=== PATIENT | female | born 1940 | race Caucasian/White ===

== ENCOUNTER 2023-05-26 12:52 | Emergency (ER) | payer OTHER ==
[~2023-05-26] VITALS: Ht 144.8 cm; Wt 67.6 kg
[~2023-05-26 12:52] MED LIST: ALPR0.5T7 PO; IBUP-1456 PO; IPRASOL41 NEB; OMEP20TA44 PO; RANI150C11 PO
[2023-05-26 13:39] LABS: Basophils # (auto) 0 10 ^3/uL (0-0.2); Basophils % (auto) 0.5 % (0.0-2.0); Eosinophils # (auto) 0.1 10 ^3/uL (0-0.8); Eosinophils % (auto) 1.4 % (0.0-7.0); Hematocrit 37.6 % (36.0-46.0); Hemoglobin 12.1 g/dL (12.2-16.2); Lymphocytes # (auto) 1.7 10 ^3/uL (0.4-5.4); Lymphocytes % (auto) 17.9 % (10.0-50.0); Mean Corpuscular Hemoglobin 30.2 pg (28.0-32.0); Mean Corpuscular Hgb Conc. 32.2 g/dL (32.0-36.0); Mean Corpuscular Volume 93.8 fL (80.0-100.0); Monocytes # (auto) 1.2 10 ^3/uL (0-1.3); Monocytes % (auto) 13.2 % (0.0-12.0); Neutrophils # (auto) 6.3 10 ^3/uL (1.6-8.6); Nucleated Red Blood Cells % 0.1 %; Red Blood Cells 4.01 10^6/uL (4.0-5.20); Red Cell Distribution Width 15.4 % (11.8-14.3); White Blood Cell 9.4 10^3/uL (4.4-10.8)
[2023-05-26 14:10] LABS: Potassium 4.4 mmol/L (3.5-5.1)
[2023-05-26 14:20] LABS: Albumin 3.6 g/dL (3.4-5.0); Bilirubin, Total 0.4 mg/dL (0.2-1.0); Calcium 9.1 mg/dL (8.5-10.1); Total Protein 7.1 g/dL (6.4-8.2)
[2023-05-26 15:55] VITALS: BP 176/73
[2023-05-26] MEDS ORDERED: cloNIDine HCL 0.1 MG TAB PO ONE (16:00)
== END 2023-05-26 15:59 | disposition home or self-care (01) ==
LOC: ER 12:52
DX: I10 Essential (primary) hypertension (principal); J45.909 Unspecified asthma, uncomplicated; Z79.82 Long term (current) use of aspirin; Z79.899 Other long term (current) drug therapy; Z88.8 Allergy status to other drugs, medicaments and biological substances
CPT/HCPCS: 36415; 80053; 82962; 83880; 84484; 85025; 93005

== ENCOUNTER 2024-03-30 11:42 | Inpatient (IN) | payer OTHER, MEDICAID ==
[2024-03-30] VITALS (7 sets, daily range): BP systolic 188; BP diastolic 82; PULSE 73–93; RESP 18; TEMP 98.1; O2SAT 92–100
[~2024-03-30] VITALS: Ht 157.5 cm; Wt 68.4 kg
[2024-03-30] MEDS: methylPREDNISolone SOD SUCC 125 MG/2 ML VL IV ONE (13:39)
[2024-03-30] MEDS: cloNIDine HCL 0.1 MG TAB PO ONE (14:09)
[2024-03-30 14:13] LABS: Basophils # (auto) 0 10 ^3/uL (0-0.2); Basophils % (auto) 0.3 % (0.0-2.0); Eosinophils # (auto) 0.1 10 ^3/uL (0-0.8); Eosinophils % (auto) 1.4 % (0.0-7.0); Hematocrit 37.3 % (36.0-46.0); Hemoglobin 12.3 g/dL (12.2-16.2); Lymphocytes # (auto) 1.2 10 ^3/uL (0.4-5.4); Lymphocytes % (auto) 14.4 % (10.0-50.0); Mean Corpuscular Hemoglobin 31.4 pg (28.0-32.0); Mean Corpuscular Volume 95.1 fL (80.0-100.0); Monocytes # (auto) 0.9 10 ^3/uL (0-1.3); Monocytes % (auto) 11.3 % (0.0-12.0); Neutrophils # (auto) 5.9 10 ^3/uL (1.6-8.6); Neutrophils % (auto) 72.6 % (37.0-80.0); Red Blood Cells 3.92 10^6/uL (4.0-5.20); Red Cell Distribution Width 14.4 % (11.8-14.3); White Blood Cell 8.1 10^3/uL (4.4-10.8)
[2024-03-30 14:47] LABS: Chloride 96 mmol/L (98-107); Potassium 2.8 mmol/L (3.5-5.1); Sodium 136 mmol/L (136-145)
[2024-03-30 14:48] LABS: Anion Gap 7 (5-15); Calcium 9.3 mg/dL (8.5-10.1); Carbon Dioxide 33 mmol/L (20-30)
[2024-03-30 14:53] LABS: BUN/Creatinine Ratio 9.3 (10.0-20.0); Blood Urea Nitrogen 5 mg/dL (9-23); Glucose 110 mg/dL (74-106)
[2024-03-30] MEDS ORDERED: NITROGLYCERIN 0.4 MG SL TAB SL PRN (16:00)
[2024-03-30] MEDS ORDERED: MORPHINE SULFATE INJ 2 MG/ml SYRG IV PRN (16:00)
[2024-03-30] MEDS ORDERED: cloNIDine HCL 0.1 MG TAB PO PRN (16:15)
[2024-03-30 17:06] LABS: Urine Bacteria None Seen /hpf (None Seen)
[2024-03-30] MEDS: MAGNESIUM SULFATE 1GM/100ML 100 ML IV SCH (17:58)
[2024-03-30] MEDS: POTASSIUM CHL 20 Meq TABLET PO ONE (17:58)
[2024-03-30] MEDS: POTASSIUM EFFERVESENT TAB 25 MEQ PO ONE (18:00)
[2024-03-30] MEDS ORDERED: PIPERACILLIN-TAZOB 3.375GM 100 ML IV SCH (18:00)
[2024-03-30 18:14] LABS: Urine Blood Negative /uL (Negative); Urine Clarity Clear (Clear); Urine Color Light-Yellow (Yellow); Urine Protein, UAD Negative (Negative); Urine Urobilinogen Normal (Negative); Urine WBC 1 /hpf (0 - 5)
[2024-03-30] MEDS: IPRATROPIUM BROM 0.5 MG/2.5ML INH SOL NEB SCH (18:47)
[2024-03-30] MEDS: BUDESONIDE (INHALATION) 0.5 MG/2 ML NEB NEB SCH (18:47)
[2024-03-30] MEDS: ALBUTEROL SULF 2.5 MG/0.5ML(0.5%) NEB SOLN NEB SCH (18:47)
[2024-03-30] MEDS: LISINOPRIL 20 MG TAB PO SCH (21:44)
[2024-03-30] MEDS: POTASSIUM CHL 20 Meq TABLET PO SCH (21:44)
[2024-03-30] MEDS: PIPERACILLIN-TAZOB 3.375GM 100 ML IV SCH (21:45)
[2024-03-30] MEDS: methylPREDNISolone SOD SUCC 40 MG/ML VL IV SCH (21:45)
[2024-03-30] MEDS: ALPRAZolam 0.5 MG TAB PO SCH (21:45)
[2024-03-31 06:44] LABS: Anion Gap 6 (5-15); Calcium 9.5 mg/dL (8.5-10.1); Carbon Dioxide 31 mmol/L (20-30); Chloride 96 mmol/L (98-107); Sodium 133 mmol/L (136-145)
[2024-03-31 06:50] LABS: BUN/Creatinine Ratio 15.3 (10.0-20.0); Blood Urea Nitrogen 11 mg/dL (9-23); Glucose 143 mg/dL (74-106)
[2024-03-31 06:51] LABS: Magnesium 2.3 mg/dL (1.6-2.6)
[2024-03-31 07:11] VITALS: PULSE 76; RESP 16; O2SAT 96
[2024-03-31 07:19] VITALS: PULSE 74; RESP 18; O2SAT 98
[2024-03-31] MEDS: ACETAMINOPHEN 500 MG TAB PO PRN (07:58)
[2024-03-31] MEDS: FAMOTIDINE 20 MG TAB PO SCH (11:22)
[2024-03-31] MEDS: amLODIPine BESYLATE 5 MG TAB PO SCH (11:23)
[2024-03-31] MEDS: ENOXAPARIN SOD 40 MG/0.4 ML SYRINGE SC SCH (11:23)
[2024-03-31] MEDS ORDERED: IPRA0.00 IN (15:02)
[2024-03-31] MEDS ORDERED: LISI10TA34 PO (15:02)
[2024-03-31] MEDS ORDERED: PRED20TA2 PO (15:02)
[2024-03-31] MEDS ORDERED: AMOX500T86 PO (15:02)
[2024-03-31 19:30] VITALS: PULSE 101; PULSE 104; RESP 20; RESP 22; O2SAT 95; O2SAT 96
[2024-03-31 19:40] VITALS: PULSE 102; RESP 22; O2SAT 99
[2024-03-31 22:59] VITALS: PULSE 88; RESP 24; O2SAT 97
[2024-04-01] VITALS (16 sets, daily range): BP systolic 130–143; BP diastolic 56–72; PULSE 71–108; RESP 16–22; TEMP 97.7–99.1; O2SAT 92–99
[2024-04-01] MEDS: AMOXICILLIN/CLAVULAN 500 MG TAB PO SCH (22:00)
[2024-04-01] MEDS: MUPIROCIN 2% OINT 15gm or 22gm FOR MRSA NARES EACHNOSTRI SCH (22:34)
[2024-04-01] MEDS: ONDANSETRON HCL 4 MG/2 ML VIAL IV PRN (22:43)
[2024-04-02] VITALS (17 sets, daily range): BP systolic 126–148; BP diastolic 64–79; PULSE 71–113; RESP 16–22; TEMP 97.7–98.2; O2SAT 93–99
[2024-04-02 06:03] LABS: Basophils # (auto) 0 10 ^3/uL (0-0.2); Basophils % (auto) 0.1 % (0.0-2.0); Eosinophils # (auto) 0 10 ^3/uL (0-0.8); Eosinophils % (auto) 0.1 % (0.0-7.0); Hematocrit 35.1 % (36.0-46.0); Hemoglobin 11.5 g/dL (12.2-16.2); Lymphocytes # (auto) 0.7 10 ^3/uL (0.4-5.4); Lymphocytes % (auto) 5.9 % (10.0-50.0); Mean Corpuscular Hemoglobin 31.3 pg (28.0-32.0); Mean Corpuscular Hgb Conc. 32.7 g/dL (32.0-36.0); Mean Corpuscular Volume 95.8 fL (80.0-100.0); Monocytes # (auto) 1.1 10 ^3/uL (0-1.3); Monocytes % (auto) 9.3 % (0.0-12.0); Neutrophils # (auto) 10.2 10 ^3/uL (1.6-8.6); Neutrophils % (auto) 84.6 % (37.0-80.0); Nucleated Red Blood Cells % 0.1 %; Red Blood Cells 3.66 10^6/uL (4.0-5.20); Red Cell Distribution Width 14.8 % (11.8-14.3); White Blood Cell 12.1 10^3/uL (4.4-10.8)
[2024-04-02 06:19] LABS: Anion Gap 4 (5-15); Calcium 9.5 mg/dL (8.5-10.1); Carbon Dioxide 31 mmol/L (20-30); Chloride 101 mmol/L (98-107); Potassium 4.2 mmol/L (3.5-5.1); Sodium 136 mmol/L (136-145)
[2024-04-02 06:24] LABS: Blood Urea Nitrogen 11 mg/dL (9-23); Glucose 86 mg/dL (74-106)
[2024-04-02] MEDS: predniSONE 20 MG TAB PO SCH (10:05)
[2024-04-03] VITALS (16 sets, daily range): BP systolic 122–148; BP diastolic 54–80; PULSE 66–110; RESP 14–20; TEMP 98–98.9; O2SAT 94–100
[2024-04-04] VITALS (18 sets, daily range): BP systolic 115–166; BP diastolic 54–70; PULSE 85–119; RESP 14–19; TEMP 97.6–98.3; O2SAT 88–99
[2024-04-04] MEDS ORDERED: CALCIUM CARB 500 MG CHEW TAB PO PRN (14:00)
[2024-04-05] VITALS (18 sets, daily range): BP systolic 132–147; BP diastolic 67–79; PULSE 80–110; RESP 14–21; TEMP 97.7–98; O2SAT 90–99
[2024-04-05] MEDS: EMPAGLIFLOZIN 10 MG TAB PO SCH (11:26)
[2024-04-05 11:47] LABS: Basophils # (auto) 0 10 ^3/uL (0-0.2); Basophils % (auto) 0.1 % (0.0-2.0); Eosinophils # (auto) 0 10 ^3/uL (0-0.8); Eosinophils % (auto) 0.4 % (0.0-7.0); Hematocrit 38.2 % (36.0-46.0); Hemoglobin 12.2 g/dL (12.2-16.2); Lymphocytes # (auto) 0.7 10 ^3/uL (0.4-5.4); Lymphocytes % (auto) 6.7 % (10.0-50.0); Mean Corpuscular Hemoglobin 31.1 pg (28.0-32.0); Mean Corpuscular Hgb Conc. 32.1 g/dL (32.0-36.0); Mean Corpuscular Volume 97.1 fL (80.0-100.0); Monocytes # (auto) 1.6 10 ^3/uL (0-1.3); Monocytes % (auto) 14.5 % (0.0-12.0); Neutrophils # (auto) 8.7 10 ^3/uL (1.6-8.6); Neutrophils % (auto) 78.3 % (37.0-80.0); Red Blood Cells 3.93 10^6/uL (4.0-5.20); White Blood Cell 11.1 10^3/uL (4.4-10.8)
[2024-04-05 12:15] LABS: Anion Gap 3 (5-15); Carbon Dioxide 31 mmol/L (20-30); Chloride 100 mmol/L (98-107); Potassium 4.1 mmol/L (3.5-5.1); Sodium 134 mmol/L (136-145)
[2024-04-05 12:17] LABS: Calcium 10.2 mg/dL (8.5-10.1)
[2024-04-05 12:21] LABS: BUN/Creatinine Ratio 16.7 (10.0-20.0); Blood Urea Nitrogen 9 mg/dL (9-23); Glucose 107 mg/dL (74-106)
[2024-04-05] MEDS: FUROSEMIDE 20 MG TAB PO ONE (13:04)
[2024-04-05] MEDS: METOPROLOL SUCCINATE XL 50 MG TAB PO ONE (13:04)
[2024-04-05] MEDS: FUROSEMIDE 20 MG/2 ML VIAL IV ONE (14:15)
[2024-04-05 15:26] LABS: Base Excess 3.8 mmol/L (-2.0-2.0)
[2024-04-05] MEDS: POTASSIUM CHL 10 Meq TABLET PO ONE (18:32)
[2024-04-05] MEDS: FUROSEMIDE 20 MG/2 ML VIAL IV SCH (18:32)
[2024-04-06] VITALS (16 sets, daily range): BP systolic 116–143; BP diastolic 51–84; PULSE 66–109; RESP 16–22; TEMP 97.3–98.4; O2SAT 94–100
[2024-04-06 05:33] LABS: Basophils # (auto) 0 10 ^3/uL (0-0.2); Basophils % (auto) 0.2 % (0.0-2.0); Eosinophils # (auto) 0 10 ^3/uL (0-0.8); Eosinophils % (auto) 0.1 % (0.0-7.0); Hematocrit 36.5 % (36.0-46.0); Hemoglobin 12.1 g/dL (12.2-16.2); Lymphocytes # (auto) 0.7 10 ^3/uL (0.4-5.4); Lymphocytes % (auto) 6.1 % (10.0-50.0); Mean Corpuscular Hemoglobin 31.8 pg (28.0-32.0); Mean Corpuscular Hgb Conc. 33.2 g/dL (32.0-36.0); Mean Corpuscular Volume 95.8 fL (80.0-100.0); Monocytes # (auto) 1.6 10 ^3/uL (0-1.3); Monocytes % (auto) 14.5 % (0.0-12.0); Neutrophils # (auto) 8.5 10 ^3/uL (1.6-8.6); Neutrophils % (auto) 79.1 % (37.0-80.0); Red Blood Cells 3.81 10^6/uL (4.0-5.20); Red Cell Distribution Width 15.1 % (11.8-14.3); White Blood Cell 10.8 10^3/uL (4.4-10.8)
[2024-04-06 05:35] LABS: Chloride 100 mmol/L (98-107); Potassium 4.2 mmol/L (3.5-5.1); Sodium 133 mmol/L (136-145)
[2024-04-06 05:36] LABS: Anion Gap 2 (5-15); Calcium 9.3 mg/dL (8.7-10.4); Carbon Dioxide 31 mmol/L (20-30)
[2024-04-06 05:42] LABS: BUN/Creatinine Ratio 27.3 (10.0-20.0); Blood Urea Nitrogen 15 mg/dL (9-23); Glucose 94 mg/dL (74-106)
[2024-04-06] MEDS ORDERED: IOHEXOL 350 MG/ML 100ML IJ ONE (10:35)
[2024-04-06] MEDS: POTASSIUM CHL 10 Meq TABLET PO SCH (11:41)
[2024-04-06] MEDS ORDERED: AMOX500T92 PO (16:06)
[2024-04-06] MEDS ORDERED: IPR002IS NEB (16:06)
[2024-04-06] MEDS ORDERED: POTA-211 PO (16:06)
[2024-04-06] MEDS ORDERED: EMPA1TAB PO (16:06)
[2024-04-06] MEDS ORDERED: AML5T PO (16:06)
[2024-04-06] MEDS ORDERED: LISI20TA56 PO (16:06)
[2024-04-07] VITALS (8 sets, daily range): BP systolic 115–128; BP diastolic 56–71; PULSE 82–102; RESP 16–20; TEMP 98–98.3; O2SAT 92–97
[2024-04-07] MEDS: DOCUSATE SOD 100 MG CAP PO SCH (09:37)
== END 2024-04-07 13:20 | disposition home health service (06) | DRG 177 ==
LOC: ER 11:42 → EDBD 11:42 → EDUNIT# 11:42 → TELE 16:01 → TELE-CENTR 03-31 22:50 → CENTRAL 04-05 12:50
PROVIDERS: ADMIT Internal Medicine; ATTEND Internal Medicine
DX: J15.69 Pneumonia due to other Gram-negative bacteria (principal); I50.23 Acute on chronic systolic (congestive) heart failure; J44.1 Chronic obstructive pulmonary disease with (acute) exacerbation; G45.9 Transient cerebral ischemic attack, unspecified; J44.0 Chronic obstructive pulmonary disease with (acute) lower respiratory infection; I11.0 Hypertensive heart disease with heart failure; E87.6 Hypokalemia; Z82.49 Family history of ischemic heart disease and other diseases of the circulatory system; Z88.3 Allergy status to other anti-infective agents
CPT/HCPCS: 36415; 70450; 71045; 71275; 80048; 81001; 82607; 83036; 83735; 83880; 84439; 84443; 84484; 85025; 87081; 93005; 93306; 94640; 96374; 97110; 97116; 97163; 97530; G0378; J2405; J2543

== ENCOUNTER → 2024-04-20 | Outpatient (CLI) | payer OTHER, MEDICAID ==
[~2024-04-20] MED LIST changes: +AML5T PO; +AMOX500T92 PO; +EMPA1TAB PO; +IPR002IS NEB; +IPRA0.00 IN; +LISI10TA34 PO; +LISI20TA56 PO; +POTA-211 PO; -RANI150C11 PO
[2024-04-20 10:19] LABS: Anion Gap 6 (5-15); Calcium 10.1 mg/dL (8.5-10.1); Carbon Dioxide 27 mmol/L (20-30); Chloride 105 mmol/L (98-107); Potassium 4.2 mmol/L (3.5-5.1); Sodium 138 mmol/L (136-145)
[2024-04-20 10:25] LABS: BUN/Creatinine Ratio 8.8 (10.0-20.0); Blood Urea Nitrogen 5 mg/dL (9-23); Glucose 96 mg/dL (74-106); Triglycerides 106 mg/dL (< 150)
[2024-04-20 10:26] LABS: LDL Cholesterol 144 mg/dL (< 100)
[2024-04-20 10:27] LABS: Cholesterol 231 mg/dL (< 200); HDL Cholesterol 59 mg/dL (40-59)
== END | disposition home or self-care (01) ==
LOC: LAB 09:25
PROVIDERS: ATTEND Internal Medicine
DX: J44.9 Chronic obstructive pulmonary disease, unspecified (principal); I11.0 Hypertensive heart disease with heart failure; I50.22 Chronic systolic (congestive) heart failure; D64.9 Anemia, unspecified; Z79.899 Other long term (current) drug therapy; Z88.8 Allergy status to other drugs, medicaments and biological substances
CPT/HCPCS: 36415; 80048; 80061; 82306; 83880; 84443

== ENCOUNTER → 2024-06-08 | Outpatient (CLI) | payer OTHER, MEDICAID ==
[2024-06-10 09:34] LABS: Hepatitis B Surface Antigen Negative (Negative)
[2024-06-10 09:54] LABS: Hepatitis A Ab IgM Negative
[2024-06-10 09:56] LABS: Hepatitis B Core IgM Negative; Hepatitis C Antibody Negative (Negative)
== END | disposition home or self-care (01) ==
LOC: LAB 09:34
PROVIDERS: ATTEND Internal Medicine
DX: I11.0 Hypertensive heart disease with heart failure (principal); I50.23 Acute on chronic systolic (congestive) heart failure; J44.9 Chronic obstructive pulmonary disease, unspecified; E78.5 Hyperlipidemia, unspecified; D64.9 Anemia, unspecified
CPT/HCPCS: 36415; 80074

== ENCOUNTER → 2025-01-06 | Outpatient (CLI) | payer OTHER, MEDICAID ==
[2025-01-06 10:45] LABS: Basophils # (auto) 0.1 10 ^3/uL (0-0.2); Basophils % (auto) 0.6 % (0.0-2.0); Eosinophils # (auto) 0 10 ^3/uL (0-0.8); Eosinophils % (auto) 0.4 % (0.0-7.0); Hematocrit 39.4 % (36.0-46.0); Hemoglobin 13.2 g/dL (12.2-16.2); Lymphocytes # (auto) 1.4 10 ^3/uL (0.4-5.4); Lymphocytes % (auto) 13.3 % (10.0-50.0); Mean Corpuscular Hemoglobin 31.3 pg (28.0-32.0); Mean Corpuscular Hgb Conc. 33.6 g/dL (32.0-36.0); Mean Corpuscular Volume 93.2 fL (80.0-100.0); Monocytes # (auto) 1.3 10 ^3/uL (0-1.3); Monocytes % (auto) 11.9 % (0.0-12.0); Neutrophils % (auto) 73.8 % (37.0-80.0); Platelet Count (auto) 229 10^3/uL (140-450); Red Blood Cells 4.23 10^6/uL (4.0-5.20); White Blood Cell 10.9 10^3/uL (4.4-10.8)
[2025-01-06 11:33] LABS: Alanine Aminotransferase 10 U/L (7-40); Alkaline Phosphatase 89 U/L (46-116); Anion Gap 9 (5-15); BUN/Creatinine Ratio 17.1 (10.0-20.0); Blood Urea Nitrogen 13 mg/dL (9-23); Carbon Dioxide 29 mmol/L (20-31); Chloride 100 mmol/L (98-107); Glucose 103 mg/dL (74-106); Potassium 4.2 mmol/L (3.5-5.1); Sodium 138 mmol/L (136-145)
[2025-01-06 11:34] LABS: Albumin 4.6 g/dL (3.2-4.8); Aspartate Aminotransferase 13 U/L (13-40); Bilirubin, Total 0.5 mg/dL (0.2-1.0)
[2025-01-06 11:35] LABS: Total Protein 7.1 g/dL (5.7-8.2)
[2025-01-06 11:48] LABS: Calcium 10.5 mg/dL (8.7-10.4)
[2025-01-06 12:48] LABS: Triglycerides 73 mg/dL (< 150)
[2025-01-06 12:51] LABS: Cholesterol 220 mg/dL (< 200); HDL Cholesterol 72 mg/dL (40-59); LDL Cholesterol 132 mg/dL (< 100)
== END | disposition home or self-care (01) ==
LOC: LAB 10:25
PROVIDERS: ATTEND Internal Medicine
DX: I11.0 Hypertensive heart disease with heart failure (principal); I50.40 Unspecified combined systolic (congestive) and diastolic (congestive) heart failure; J44.9 Chronic obstructive pulmonary disease, unspecified; E78.5 Hyperlipidemia, unspecified; Z79.899 Other long term (current) drug therapy
CPT/HCPCS: 36415; 80053; 80061; 82306; 82607; 83880; 85025

== ENCOUNTER 2025-07-05 09:42 | Outpatient (CLI) | payer OTHER, MEDICAID ==
[2025-07-05 10:30] LABS: Hematocrit 39.8 % (36.0-46.0); Hemoglobin 13.7 g/dL (12.2-16.2); Mean Corpuscular Hemoglobin 31.4 pg (28.0-32.0); Mean Corpuscular Volume 91.3 fL (80.0-100.0); Nucleated Red Blood Cells % 0.0 %
[2025-07-05 10:47] LABS: Alanine Aminotransferase 11 U/L (7-40); Albumin 4.3 g/dL (3.2-4.8); Alkaline Phosphatase 98 U/L (46-116); Anion Gap 9 (5-15); BUN/Creatinine Ratio 10.8 (10.0-20.0); Bilirubin, Total 0.8 mg/dL (0.2-1.0); Blood Urea Nitrogen 9 mg/dL (9-23); Calcium 9.6 mg/dL (8.7-10.4); Carbon Dioxide 27 mmol/L (20-31); Chloride 100 mmol/L (98-107); Cholesterol 222 mg/dL (< 200); Glucose 101 mg/dL (74-106); HDL Cholesterol 71 mg/dL (40-59); Potassium 4.4 mmol/L (3.5-5.1); Sodium 136 mmol/L (136-145); Total Protein 6.7 g/dL (5.7-8.2); Triglycerides 68 mg/dL (< 150)
== END 2025-07-05 17:00 | disposition home or self-care (01) ==
LOC: LAB 09:42
PROVIDERS: ATTEND Internal Medicine
DX: I50.9 Heart failure, unspecified (principal); I51.7 Cardiomegaly; E78.5 Hyperlipidemia, unspecified; J44.9 Chronic obstructive pulmonary disease, unspecified
CPT/HCPCS: 36415; 80053; 80061; 84443; 85025

== ENCOUNTER 2025-10-06 09:57 | Outpatient (CLI) | payer OTHER, MEDICAID ==
[2025-10-06 11:03] LABS: Alanine Aminotransferase 11 U/L (7-40); Albumin 4.1 g/dL (3.2-4.8); Alkaline Phosphatase 112 U/L (46-116); Anion Gap 8 (5-15); BUN/Creatinine Ratio 16.5 (10.0-20.0); Bilirubin, Total 0.5 mg/dL (0.2-1.0); Blood Urea Nitrogen 13 mg/dL (9-23); Calcium 9.5 mg/dL (8.7-10.4); Carbon Dioxide 30 mmol/L (20-31); Chloride 105 mmol/L (98-107); Creatine Kinase IFCC 67 U/L (34-145); Glucose 104 mg/dL (74-106); Potassium 4.6 mmol/L (3.5-5.1); Sodium 143 mmol/L (136-145); Total Protein 6.9 g/dL (5.7-8.2); Triglycerides 65 mg/dL (< 150)
[2025-10-06 11:05] LABS: Cholesterol 224 mg/dL (< 200); HDL Cholesterol 70 mg/dL (40-59)
== END 2025-10-06 17:00 | disposition home or self-care (01) ==
LOC: LAB 09:57
PROVIDERS: ATTEND Internal Medicine
DX: E78.5 Hyperlipidemia, unspecified (principal)
CPT/HCPCS: 36415; 80053; 80061; 82550